=== PATIENT | male | born 1960 | race Two or more races ===

== ENCOUNTER 2018-05-20 23:00 | Emergency (ER) | payer OTHER ==
[2018-05-21] MEDS: IBUPROFEN 600 MG TAB PO (00:09)
[2018-05-21] MEDS: TRIMETHOPRIM/SULFAMETHOX (DS) TAB PO (00:09)
[2018-05-21] MEDS: CEPHALEXIN 500 MG CAP PO (00:09)
== END 2018-05-21 01:07 | disposition home or self-care (01) ==
LOC: FTE 23:00
DX: S60.561A Insect bite (nonvenomous) of right hand, initial encounter (principal); E11.9 Type 2 diabetes mellitus without complications; W57.XXXA Bitten or stung by nonvenomous insect and other nonvenomous arthropods, initial encounter; Y92.9 Unspecified place or not applicable
CPT/HCPCS: 99284; Z7502